=== PATIENT | female | born 1930 | race Caucasian/White ===

== ENCOUNTER 2018-01-02 19:33 | Inpatient (IN) | payer MEDICARE, OTHER ==
[~2018-01-02] VITALS: Ht 167.6 cm; Wt 50.9 kg
--- NOTE | ~2018-01-02 | MORECARE ---
CASE MANAGEMENT DISCHARGE SUMMARY PATIENT: ADRIEN SHERIDAN UNIT: [id number] ADM DATE: 01/02/18 AGE: 87 : [birth year] SEX: F ROOM/BED: D.2889 AUTHOR: RC,DOC PHYSICIAN: REFERRING PHYSICIAN: TIEN JACINTO MD DATE OF SERVICE: 01/05/18 Discharge Plan Patient Name: ADRIEN SHERIDAN Facility: [facility]:[place] : 1930 Planned Disposition: Home with Home Health Anticipated Discharge Date: 01/05/18 Discharge Date: Expected LOS: 3 Initial Reviewer: [id number] Initial Review Date: 01/05/2018 Generated: 01/05/18 5:07 pm Comments DCP- Discharge Planning Updated by [id number]: Bijan Alvarez on 01/05/18 3:[address] Patient Name: ADRIEN SHERIDAN Encounter No: [id number] : 1930 Primary Insurance: MEDICARE A & B Anticipated DC Date: 01-05-2018 Planned Disposition: Home with Home Health External Planned Provider: [facility] DISCHARGE PLANNING COMMENTS: CM MET WITH PT AND SPOUSE IN ROOM TO DISCUSS DISCHARGE PLANNING AND NEEDS. PT TALKING ABOUT THINGS NOT RELEVANT, PT'S SPOUSE REPORTS PT HAS DEMENTIA AND HE IS PT'S CAREGIVER. PT LIVES AT HOME WITH SPOUSE WHO ASSIST WITH PT'S CARE. PT HAS WALKER AND WHEELCHAIR IF NEEDED WITH NO MEDICAL EQUIPMENT PROVIDER PREFERENCE. PT HAS NO OUTSIDE SERVICES ASSISTING IN THE HOME. PT'S SPOUSE HAS RECEIVED INFORMATION ON THE [facility] FOR POSSIBLE DAYCARE AND RESPITE SERVICES. CM DISCUSSED AVAILABILITY OF HOME HEALTH, REHAB SERVICES AND MEDICAL EQUIPMENT. SPOUSE WOULD LIKE HOME HEALTH. SPOUSE TO PICK PT UP FOR DISCHARGE HOME. IMPORTANT MESSAGE FROM MEDICARE PROVIDED AND EXPLAINED. SPOUSE SIGNED CONSENT FOR HOME HEALTH WITH NO PREFERENCE ON PROVIDER. CM PROVIDED INFORMATION ON MEDICAL AFFAIRS DIRECTOR SERVICES AND REFERRAL SERVICE "[facility]". CM CALLED [facility] WHO HAS NO AVAILABLITY FOR WEEKEND ADMIT. CM CALLED [facility], , SPOKE TO SMITHA WHO REPORTS CAN ADMIT ON MONDAY AND WILL ACCEPT. CM NOTIFIED PT'S SPOUSE WHO IS IN AGREEMENT WITH PLAN. CM FAXED REFERRAL AND DISCHARGE INFORMATION TO [facility] AT [phone]. YARN WEIGHT AND STRENGTH TESTER NURSE NOTIFIED. Bijan Alvarez, CASE MANAGEMENT DCPIA - Discharge Planning Initial Assessment Updated by [id number]: Bijan Alvarez on 01/05/18 3:56 pm * Is the patient Alert and Oriented? No * How many steps to enter\\exit or inside your home? NONE * PCP DR. CHAPO ALONZO, NUMERICAL TOOL PROGRAMMER AT [facility] * Pharmacy [address] * Preadmission Environment Home with Family * ADLs Partial Dependent * Partial ADLs (Assistance needed) Bathing Medication Management * Equipment Walker Wheelchair * Other Equipment NO MEDICAL EQUIPMENT PROVIDER PREFERENCE * List name and contact numbers for known caregivers / representatives who currently or will assist patient after discharge: JULIETTE SHERIDAN, SPOUSE, * Verbal permission to speak to the caregivers and representatives has been obtained from the patient. N/A * Community resources currently utilized None * Please name any agencies selected above. NONE * Additional services required to return to the preadmission environment? No * Can the patient safely return to the preadmission environment? Yes * Has this patient been hospitalized within the prior 30 days at any hospital? No Coverage Notice Reviewer: [id number] Louis Alvarez Notice Issued Date-Time: 01/05/2018 15:15 Notice Type: IM Discharge Notice Notice Delivered To: Family Member Relationship to Patient: Spouse Rate Engineer Name: JULIETTE SHERIDAN Delivery Method: HAND - Hand Delivered Beth Days: Prior Verbal Notification: Recipient Understood Notice: Yes Recipient Signature: Yes Med Rec Note Co-signed by Attending: Coverage Notice Comment: Reviewer: [id number] Louis Alvarez Notice Issued Date-Time: 01/05/2018 15:15 Notice Type: Patient Choice Letter Notice Delivered To: Family Member Relationship to Patient: Spouse Rate Engineer Name: JULIETTE SHERIDAN Delivery Method: HAND - Hand Delivered Beth Days: Prior Verbal Notification: Recipient Understood Notice: Yes Recipient Signature: Yes Med Rec Note Co-signed by Attending: Coverage Notice Comment: NO PREFERENCE ON PROVIDER Last DP export: 01/05/18 2:58 Patient Name: ADRIEN SHERIDAN Page [id number] at 1607 All edits/amendments must be made on the electronic document DICTATION DATE: 01/05/181606 MOBILE HOME PARK MANAGER: SAI 01/05/181606 RPT#: [id number] DC DATE: STATUS: ADM IN [facility] [address] [place] [address] END OF REPORT
--- NOTE | ~2018-01-02 | MORECARE ---
CASE MANAGEMENT DISCHARGE SUMMARY PATIENT: ADRIEN SHERIDAN UNIT: [id number] ADM DATE: 01/02/18 AGE: 87 : [birth year] SEX: F ROOM/BED: D.6151 AUTHOR: RC,DOC PHYSICIAN: REFERRING PHYSICIAN: TIEN JACINTO MD DATE OF SERVICE: 01/05/18 Discharge Plan Patient Name: ADRIEN SHERIDAN Facility: [facility]:[place] : 1930 Planned Disposition: Home with Home Health Anticipated Discharge Date: 01/05/18 Discharge Date: Expected LOS: 3 Initial Reviewer: ARIELA Initial Review Date: 01/05/2018 Generated: 01/05/18 4:58 pm DCPIA - Discharge Planning Initial Assessment Updated by ARIELA: Bijan Alvarez on 01/05/18 3:56 pm * Is the patient Alert and Oriented? No * How many steps to enter\exit or inside your home? NONE * PCP DR. CHAPO ALONZO, SCHOOL TRANSPORTATION DIRECTOR AT [facility] * Pharmacy [address] * Preadmission Environment Home with Family * ADLs Partial Dependent * Partial ADLs (Assistance needed) Bathing Medication Management * Equipment Walker Wheelchair * Other Equipment NO MEDICAL EQUIPMENT PROVIDER PREFERENCE * List name and contact numbers for known caregivers / representatives who currently or will assist patient after discharge: JULIETTE SHERIDAN, SPOUSE, * Verbal permission to speak to the caregivers and representatives has been obtained from the patient. N/A * Community resources currently utilized None * Please name any agencies selected above. NONE * Additional services required to return to the preadmission environment? No * Can the patient safely return to the preadmission environment? Yes * Has this patient been hospitalized within the prior 30 days at any hospital? No External Providers External Provider: [facility] Contact Date: 01/05/2018 Service Request Date: Service Type: Resolution: Reviewer: Comments: Coverage Notice Reviewer: [id number] Louis Alvarez Notice Issued Date-Time: 01/05/2018 15:15 Notice Type: IM Discharge Notice Notice Delivered To: Family Member Relationship to Patient: Spouse Medical Device Sales Name: JULIETTE SHERIDAN Delivery Method: HAND - Hand Delivered Beth Days: Prior Verbal Notification: Recipient Understood Notice: Yes Recipient Signature: Yes Med Rec Note Co-signed by Attending: Coverage Notice Comment: Reviewer: [email or web address] Louis Alvarez Notice Issued Date-Time: 01/05/2018 15:15 Notice Type: Patient Choice Letter Notice Delivered To: Family Member Relationship to Patient: Spouse Medical Device Sales Name: JULIETTE SHERIDAN Delivery Method: HAND - Hand Delivered Beth Days: Prior Verbal Notification: Recipient Understood Notice: Yes Recipient Signature: Yes Med Rec Note Co-signed by Attending: Coverage Notice Comment: Patient Name: ADRIEN SHERIDAN Page [id number] at 1558 All edits/amendments must be made on the electronic document DICTATION DATE: 01/05/181557 VENEER JOINER: SAI 01/05/181557 RPT#: [id number] DC DATE: STATUS: ADM IN [facility] [address] [place] [address] END OF REPORT
[2018-01-02] MEDS ORDERED: LISINOPRIL10 MG PO (19:51)
[2018-01-02] MEDS ORDERED: MELATONIN 3 MG1 TAB PO (19:51)
[2018-01-02 21:04] LABS: BASOPHILS 0.1 % (0-2); EOSINOPHILS 0.1 % (0-7); HEMATOCRIT 36.9 % (36.0-48.0); HEMOGLOBIN 12.1 g/dL (12-16); IMMATURE GRANULOCYTES 0.4 % (0-5); LYMPHOCYTES 7.2 % (15-50); MCH 29.6 pg (26.0-34.0); MCHC 32.8 g/dL (31.0-37.0); MCV 90.2 fL (80.0-100.0); MEAN PLATELET VOLUME 10.7 fL (7.4-10.4); MONOCYTES 13.1 % (2-11); NEUTROPHILS 79.1 % (40-80); PLATELET COUNT 249 10x3/uL (130-400); RBC 4.09 10x6/uL (4.00-5.40); RDW 13.3 % (11.5-14.5); WBC 11.3 10x3/uL (4.8-10.8)
[2018-01-02 21:31] LABS: ALBUMIN 2.7 g/dL (3.4-5.0); ANION GAP 13.4 mmol/L (8-16); BILIRUBIN - TOTAL 0.36 mg/dL (0.2-1.3); CALCIUM 9.2 mg/dL (8.5-10.1); CARBON DIOXIDE 24.9 mmol/L (21.0-32.0); CREATININE - SERUM 2.3 mg/dL (0.6-1.3); POTASSIUM - SERUM 4.3 mmol/L (3.5-5.1); PROTEIN - SERUM 7.5 g/dL (6.4-8.2)
[2018-01-02 21:57] LABS: TROPONIN-I 0.2 ng/mL (0.000-0.060)
[2018-01-02 22:42] LABS: APPEARANCE CLOUDY (CLEAR); BILIRUBIN NEGATIVE (NEGATIVE); COLOR YELLOW (YELLOW); GLUCOSE NEGATIVE (NEGATIVE); KETONE NEGATIVE (NEGATIVE); NITRITE NEGATIVE (NEGATIVE); PROTEIN TRACE mg/dL (NEGATIVE); SPECIFIC GRAVITY 1.015 (1.005-1.020); UROBILINOGEN NORMAL (NORMAL)
[2018-01-02 22:43] LABS: BACTERIA MANY /hpf (NONE SEEN); EPITHELIAL CELLS 0-5 /hpf (0-5); RED CELLS - URINE OCC /hpf (0-5); WHITE CELLS - URINE 25-50 /hpf (0-5)
[2018-01-02 22:56] VITALS: BP 135/70
[2018-01-03] VITALS (9 sets, daily range): BP systolic 118–152; BP diastolic 53–94; Ht 167.6 cm; Wt 50.9 kg
[2018-01-03 06:09] LABS: BASOPHILS 0.1 % (0-2); EOSINOPHILS 0.3 % (0-7); HEMATOCRIT 33.9 % (36.0-48.0); HEMOGLOBIN 11.3 g/dL (12-16); IMMATURE GRANULOCYTES 0.3 % (0-5); LYMPHOCYTES 20.3 % (15-50); MCH 30.1 pg (26.0-34.0); MCHC 33.3 g/dL (31.0-37.0); MCV 90.2 fL (80.0-100.0); MEAN PLATELET VOLUME 10.6 fL (7.4-10.4); MONOCYTES 12.5 % (2-11); NEUTROPHILS 66.5 % (40-80); PLATELET COUNT 229 10x3/uL (130-400); RBC 3.76 10x6/uL (4.00-5.40); RDW 13.4 % (11.5-14.5)
[2018-01-03 06:20] LABS: WBC 7.6 10x3/uL (4.8-10.8)
[2018-01-03 06:52] LABS: ALBUMIN 2.4 g/dL (3.4-5.0); ALKALINE PHOSPHATASE 74 U/L (46-116); ALT (SGPT) 10 U/L (10-68); BILIRUBIN - TOTAL 0.27 mg/dL (0.2-1.3); CALCIUM 8.5 mg/dL (8.5-10.1); CARBON DIOXIDE 21.8 mmol/L (21.0-32.0); CHLORIDE - SERUM 104 mmol/L (98-107); CKMB 1.2 U/L (0.0-3.6); CREATINE KINASE 43 UL (21-215); CREATININE - SERUM 2.1 mg/dL (0.6-1.3); PROTEIN - SERUM 6.7 g/dL (6.4-8.2); SODIUM 137 mmol/L (136-145); UREA NITROGEN 35 mg/dL (7-18); eGFR NON AFRICAN AMERICAN 23 mL/min (90-120)
[2018-01-03 06:55] LABS: CALC OSMOLALITY 281 mosm/kg (275-300); GLUCOSE 104 mg/dL (74-106); TROPONIN-I 0.169 ng/mL (0.000-0.060)
[2018-01-03 11:09] LABS: TROPONIN-I 0.192 ng/mL (0.000-0.060)
[2018-01-03 17:53] LABS: CKMB 3.3 U/L (0.0-3.6); CREATINE KINASE 196 UL (21-215)
[2018-01-03 17:54] LABS: TROPONIN-I 0.233 ng/mL (0.000-0.060)
[2018-01-04 00:57] VITALS: BP 140/79
[2018-01-04 05:32] VITALS: BP 148/77
[2018-01-04 06:03] LABS: BASOPHILS 0.3 % (0-2); EOSINOPHILS 1.1 % (0-7); HEMATOCRIT 34.8 % (36.0-48.0); HEMOGLOBIN 11.3 g/dL (12-16); IMMATURE GRANULOCYTES 0.5 % (0-5); LYMPHOCYTES 27.5 % (15-50); MCH 29.4 pg (26.0-34.0); MCHC 32.5 g/dL (31.0-37.0); MCV 90.4 fL (80.0-100.0); MEAN PLATELET VOLUME 10.6 fL (7.4-10.4); MONOCYTES 10.8 % (2-11); NEUTROPHILS 59.8 % (40-80); PLATELET COUNT 245 10x3/uL (130-400); RBC 3.85 10x6/uL (4.00-5.40); RDW 13.4 % (11.5-14.5); WBC 6.3 10x3/uL (4.8-10.8)
[2018-01-04 06:19] LABS: ALBUMIN 2.3 g/dL (3.4-5.0); ANION GAP 15.8 mmol/L (8-16); BILIRUBIN - TOTAL 0.25 mg/dL (0.2-1.3); CALCIUM 8.4 mg/dL (8.5-10.1); CARBON DIOXIDE 22.1 mmol/L (21.0-32.0); CREATININE - SERUM 1.6 mg/dL (0.6-1.3); MAGNESIUM - SERUM 1.6 mg/dL (1.8-2.4); PHOSPHOROUS 3.1 mg/dL (2.5-4.9); POTASSIUM - SERUM 3.9 mmol/L (3.5-5.1); PROTEIN - SERUM 6.8 g/dL (6.4-8.2); URIC ACID 7.1 mg/dL (2.6-7.2)
[2018-01-04 08:01] VITALS: BP 161/82
[2018-01-04 11:52] VITALS: BP 151/89
[2018-01-04 15:20] VITALS: BP 142/85
[2018-01-05 01:20] VITALS: BP 144/79
[2018-01-05 06:21] LABS: BASOPHILS 0.2 % (0-2); EOSINOPHILS 1.1 % (0-7); HEMATOCRIT 33.8 % (36.0-48.0); IMMATURE GRANULOCYTES 0.3 % (0-5); LYMPHOCYTES 28.5 % (15-50); MCH 29.3 pg (26.0-34.0); MCHC 32.5 g/dL (31.0-37.0); MCV 90.1 fL (80.0-100.0); MEAN PLATELET VOLUME 10.6 fL (7.4-10.4); NEUTROPHILS 56.9 % (40-80); PLATELET COUNT 242 10x3/uL (130-400); RBC 3.75 10x6/uL (4.00-5.40); RDW 13.4 % (11.5-14.5); WBC 6.2 10x3/uL (4.8-10.8)
[2018-01-05 06:41] LABS: ALBUMIN 2.2 g/dL (3.4-5.0); ANION GAP 14.4 mmol/L (8-16); BILIRUBIN - TOTAL 0.37 mg/dL (0.2-1.3); CALCIUM 8.8 mg/dL (8.5-10.1); CARBON DIOXIDE 22.8 mmol/L (21.0-32.0); CREATININE - SERUM 1.3 mg/dL (0.6-1.3); PHOSPHOROUS 3.3 mg/dL (2.5-4.9); POTASSIUM - SERUM 4.2 mmol/L (3.5-5.1); PROTEIN - SERUM 6.5 g/dL (6.4-8.2)
[2018-01-05 06:43] LABS: MAGNESIUM - SERUM 2.3 mg/dL (1.8-2.4)
[2018-01-05 09:41] VITALS: BP 126/66
[2018-01-05 13:11] VITALS: BP 118/65
[2018-01-05] MEDS ORDERED: LEVOFLOXACIN500 MG PO (14:46)
== END 2018-01-05 17:45 | disposition home health service (06) | DRG 682 ==
LOC: D.ER 19:33 → D.EDHOLD 23:16 → D.M2 23:16
PROVIDERS: Family Medicine; Internal Medicine Nephrology
DX: N17.9 Acute kidney failure, unspecified (principal); G93.41 Metabolic encephalopathy; N39.0 Urinary tract infection, site not specified; I24.8 Other forms of acute ischemic heart disease; F03.90 Unspecified dementia, unspecified severity, without behavioral disturbance, psychotic disturbance, mood disturbance, and anxiety; I10 Essential (primary) hypertension